=== PATIENT | male | born 1965 | race Caucasian/White ===

== ENCOUNTER 2021-12-19 17:43 | Emergency (ER) | payer MEDICARE, SELFPAY ==
[2021-12-19] VITALS (18 sets, daily range): BP systolic 186–220; BP diastolic 95–120; PULSE 68–80; RESP 18; TEMP 36.9; O2SAT 95–99; BMI 40.8
--- NOTE | 2021-12-19 17:55 | DI.RAD.S_ITS ---
PROCEDURE: XR CHEST 1V INDICATIONS: chest pain TECHNIQUE: One view of the chest was acquired. COMPARISON: None. FINDINGS: Surgical changes and devices: None. Lungs and pleura: Lungs are clear. No pleural effusions or pneumothorax. Mediastinum: Mediastinal contours appear normal. Heart size is normal. Bones and chest wall: No suspicious bony lesions. Overlying soft tissues appear unremarkable. IMPRESSION: No evidence acute pulmonary process. Dictated by: Oscar Wu M.D. on 12/19/2021 at 19:02 Approved by: Oscar Wu M.D. on 12/19/2021 at 19:03
--- NOTE | 2021-12-19 18:10 | ED_ITS ---
HPI - General Adult General Chief complaint: Hypertension Stated complaint: Very high BP Time Seen by Provider: 12/19/21 18:09 Mode of arrival: Family Vehicle History of Present Illness HPI narrative: 56-year-old male smoker without existing diagnoses presents with a chief complaint of elevated blood pressure at the request of a family friend who works in the medical field. His blood pressures have been as high as the 220s over 120s and though today he is had no symptoms and specifically denies any headache or blurred vision or any trouble speech. He is had no chest pain or shortness of breath and denies any extremity numbness, tingling or weakness. He is not dizzy or lightheaded. He states that on occasion he does get some twinges of belly pain and has some tunnel vision. Again he does not have any symptoms today in his here purely because of a family members request. He is got an appointment with his primary care provider, a 1st visit, on the . When he presented he was 220/120 Related Data Previous Rx's Medication Instructions Recorded amlodipine 5 mg tablet 5 mg PO DAILY #30 tabs 12/19/21 Allergies Allergy/AdvReac Type Severity Reaction Status Date / Time No Known Drug Allergies Allergy Verified 12/19/21 17:55 Review of Systems Review of Systems Narrative: GENERAL: Denies chills, fatigue, malaise, fever, sweats. HEENT: Denies sinus pain, ear pain, sore throat, difficulty swallowing, dizziness. RESPIRATORY: Denies dyspnea, cough, wheezing, hemoptysis, sputum. CARDIOVASCULAR: Denies chest pain, palpitations, orthopnea, edema, GASTROINTESTINAL: Denies nausea, vomiting, abdominal pain, diarrhea, constipation, melena. : Denies dysuria, frequency, incontinence, hematuria, urinary retention. MUSCULOSKELETAL: denies weakness, joint pain, or bony pain SKIN: Denies rash, skin lesions, or other NEUROLOGIC: Denies weakness, headache, numbness, change in speech, confusion, seizures, incoordination. PSYCHIATRIC: No concerning psychosocial issues. 12 point review of systems is negative except for those stated above Patient History Social History Smoking Status: Current every day smoker Smoking Status: Current every day smoker Substance Use Type: marijuana Exam Narrative Exam Narrative: GENERAL: [56] year old patient appears stated age. Well-developed patient, in mild distress. HEAD: Atraumatic. Normocephalic. EYES: Pupils equal round and reactive. Extraocular motions intact. No scleral icterus. No injection or drainage. ENT: Nose without bleeding, purulent drainage. Throat without erythema, tonsillar hypertrophy or exudate. Airway patent. NECK: Trachea midline. Non tender CARDIOVASCULAR: Regular rate and rhythm without murmurs, gallops, or rubs. RESPIRATORY: Clear to auscultation. Breath sounds equal bilaterally. No wheezes, rales, or rhonchi. GASTROINTESTINAL: Abdomen soft, non-tender, nondistended. EXTREMITIES: No edema or joint tenderness. BACK: Nontender without deformity or crepitance. No flank tenderness. NEURO: AOx3. SKIN: No rash or erythema of visible areas Initial Vital Signs Initial Vital Signs: Vital Signs Temperature 98.4 F 12/19/21 17:52 Pulse Rate 80 12/19/21 17:52 Respiratory Rate 18 12/19/21 17:52 Blood Pressure 220/120 H 12/19/21 17:52 Pulse Oximetry 99 12/19/21 17:52 Oxygen Delivery Method 12/19/21 17:52 Course Orders Ordered: ED Orders 12/19/21 17:55 XR chest 1V Stat 12/19/21 18:00 Complete Blood Count AUTO DIFF Stat Comprehensive Metabolic Panel Stat Lipase Stat Magnesium Stat Troponin & CK Cardiac Panel Stat 12/19/21 18:02 EKG-12 Lead Stat 12/19/21 20:11 Creatinine & eGFR Stat Troponin & CK Cardiac Panel Stat Discontinued Medications Amlodipine Besylate (Amlodipine 5 Mg Tablet) 5 mg PO NOW ONE Stop: 12/19/21 19:16 Last Admin: 12/19/21 19:36 Dose: 5 mg Documented By: NR Vital Signs Vital signs: Vital Signs - 8 hr 12/19/21 18:30 12/19/21 18:31 12/19/21 18:31 Pulse Rate 72 74 Blood Pressure 186/98 H Pulse Oximetry 97 96 12/19/21 19:00 12/19/21 19:01 12/19/21 19:01 Pulse Rate 72 71 Blood Pressure 201/105 H Pulse Oximetry 98 97 12/19/21 19:30 12/19/21 19:31 12/19/21 19:31 Pulse Rate 70 73 Blood Pressure 205/102 H Pulse Oximetry 97 97 12/19/21 19:38 12/19/21 19:38 12/19/21 20:00 Pulse Rate 79 68 Blood Pressure 211/105 H Pulse Oximetry 97 95 12/19/21 20:01 12/19/21 20:01 12/19/21 20:30 Pulse Rate 68 70 Blood Pressure 212/98 H Pulse Oximetry 95 95 12/19/21 20:31 12/19/21 20:31 12/19/21 21:00 Pulse Rate 70 71 Blood Pressure 206/95 H Pulse Oximetry 95 97 12/19/21 21:16 12/19/21 21:17 Pulse Rate 73 Blood Pressure 207/109 H Pulse Oximetry 97 Medical Decision Making Lab Data Result diagrams: 12/19/21 18:00 12/19/21 20:11 Labs: Lab Results 12/19/21 12/19/21 12/19/21 Range/Units 18:00 18:00 20:11 WBC 10.0 (4.5-11.0) X10^3/uL RBC 4.83 (4.5-5.9) X10^6/uL Hgb 13.2 L (13.5-17.5) g/dL Hct 40.3 L (41-53) % MCV 83.4 (80-100) fL MCH 27.4 (26-34) PG MCHC 32.8 (30-36) % RDW 17.0 H (11.6-14.8) % Plt Count 270 (150-400) X10^3/uL Neut % (Auto) 65.4 (50-75) % Lymph % (Auto) 25.7 (25-40) % [place] % (Auto) 5.9 (3-14) % Eos % (Auto) 2.2 (2-4) % Baso % (Auto) 0.8 (0-2) % Neut # (Auto) 6500 (8024-4877) /uL Lymph # (Auto) 2600 (7841-6236) /uL [place] # (Auto) 600 (0-900) /uL Eos # (Auto) 200 (0-450) /uL Baso # (Auto) 100 (0-100) /uL Sodium 138 (137-145) mmol/L Potassium 4.3 (3.4-5.1) mmol/L Chloride 103 (98-107) mmol/L Carbon Dioxide 27 (22-32) mmol/L BUN 29 H (9-20) mg/dL Creatinine 1.67 H 1.50 H (0.66-1.25) mg/dL Estimated GFR 48 L 55 L (>60) mL/min BUN/Creatinine Ratio 17.4 (6-22) Glucose 142 H (70-100) mg/dL Calcium 8.9 (8.4-10.2) mg/dL Magnesium 1.9 (1.6-2.3) mg/dL Total Bilirubin 0.3 (0.2-1.3) mg/dL AST 30 (17-59) IU/L ALT 30 (<50) IU/L Alkaline Phosphatase 84 (38-126) U/L Total Creatine Kinase 140 129 (55-170) U/L CK-MB (CK-2) 2.61 H 2.38 H (<2.37) ng/mL CK-MB (CK-2) Rel Index 1.9 1.8 (1.5-5.0) % Troponin I 0.085 H 0.078 H (0.01-0.034) ng/mL Total Protein 7.7 (6.3-8.2) g/dL Albumin 4.1 (3.5-5.0) g/dL Globulin 3.6 (1.7-4.1) g/dL Albumin/Globulin Ratio 1.1 (1.0-2.8) Lipase 117 (23-300) U/L MDM Narrative Medical decision making narrative: Patient with reassuring history and physical exam. He is had asymptomatic hypertension for many months if not years. Presented for evaluation at the request of a family friend. He does have a slight bump in his creatinine and troponin is indeterminate, few hours later labs are retested in both moving in the right direction. Patient has no indication for hospitalization. Extensive return precautions discussed and questions answered to his apparent satisfaction Discharge Plan Departure Patient Disposition: Home Clinical Impression: Hypertension Instructions: DI for High Blood Pressure Activity Restrictions/Additional Instructions: *You have been diagnosed with [hypertension] *What to do: *Please continue to take your regular medications as directed. [x ] New medication prescriptions sent to your pharmacy: [[facility] ] [ ] New medication written as a paper prescription [ ] No new medications given *Please follow up with your primary care provider in 2-3 days, call for an appointment. Let them know you were seen in the Emergency Department and that we ask that you be seen in follow up. We will electronically transmit a record of today's note if your PCP is in our system *If you do not have a primary care provider please contact the [facility] Resource line at [phone]. They will ask some questions about your medical history and help get you set up with a doctor in the community. *Return to Emergency Department if you should have any new, worsening or concerning symptoms, such as [fever greater than 101 F, shaking chills, worsening pain, persistent vomiting or other bothersome symptoms] Prescriptions: New amlodipine 5 mg tablet 5 mg PO DAILY Qty: 30 0RF Visit Report Forms: Patient Portal/API
[2021-12-19 18:21] LABS: Alanine Aminotransferase 30 IU/L (<50); Albumin 4.1 g/dL (3.5-5.0); Albumin Globulin Ratio 1.1 (1.0-2.8); Alkaline Phosphatase 84 U/L (38-126); Aspartate Aminotransferase 30 IU/L (17-59); BUN Creatinine Ratio 17.4 (6-22); Bilirubin Total 0.3 mg/dL (0.2-1.3); Blood Urea Nitrogen 29 mg/dL (9-20); Calcium 8.9 mg/dL (8.4-10.2); Carbon Dioxide 27 mmol/L (22-32); Chloride 103 mmol/L (98-107); Creatine Kinase 140 U/L (55-170); Estimated Glomerular Filt Rate 48 mL/min (>60); Globulin 3.6 g/dL (1.7-4.1); Glucose 142 mg/dL (70-100); HEMOLYSIS < 15 (0-50); Lipase 117 U/L (23-300); Magnesium 1.9 mg/dL (1.6-2.3); Potassium 4.3 mmol/L (3.4-5.1); Sodium 138 mmol/L (137-145); Total Protein 7.7 g/dL (6.3-8.2)
[2021-12-19 18:30] LABS: Add Manual Diff / Slide Review NO; Basophils Absolute Auto 100 /uL (0-100); Basophils Percent Auto 0.8 % (0-2); Eosinophils Absolute Auto 200 /uL (0-450); Eosinophils Percent Auto 2.2 % (2-4); Hematocrit 40.3 % (41-53); Hemoglobin 13.2 g/dL (13.5-17.5); Lymphocytes Absolute Auto 2600 /uL (1100-4500); Lymphocytes Percent Auto 25.7 % (25-40); Mean Corpuscular HGB Conc 32.8 % (30-36); Mean Corpuscular Hemoglobin 27.4 PG (26-34); Mean Corpuscular Volume 83.4 fL (80-100); Monocytes Absolute Auto 600 /uL (0-900); Monocytes Percent Auto 5.9 % (3-14); Neutrophils Absolute Auto 6500 /uL (1500-7000); Neutrophils Percent Auto 65.4 % (50-75); Platelet Count 270 X10^3/uL (150-400); Red Blood Cell Count 4.83 X10^6/uL (4.5-5.9)
[2021-12-19 18:32] LABS: Troponin I 0.085 ng/mL (0.01-0.034)
[2021-12-19 18:36] LABS: CKMB % Relative Index 1.9 % (1.5-5.0); Creatine Kinase MB 2.61 ng/mL (<2.37)
[2021-12-19] MEDS: AMLODIPINE 5 MG TABLET PO (19:36)
[2021-12-19 20:41] LABS: Creatine Kinase 129 U/L (55-170); Estimated Glomerular Filt Rate 55 mL/min (>60)
[2021-12-19 20:52] LABS: Troponin I 0.078 ng/mL (0.01-0.034)
[2021-12-19 20:57] LABS: CKMB % Relative Index 1.8 % (1.5-5.0); Creatine Kinase MB 2.38 ng/mL (<2.37)
== END 2021-12-19 21:20 | disposition home or self-care (01) ==
PROVIDERS: Emergency Medicine; Emergency Provider Emergency Medicine
DX: I10 Essential (primary) hypertension (principal); R07.9 Chest pain, unspecified
CPT/HCPCS: 36415; 71045; 80053; 82550; 82553; 82565; 83690; 83735; 84484; 85025; 93005; 93010; 99283; 99284